=== PATIENT | male | born 1965 | race Caucasian/White ===

== ENCOUNTER 2017-01-01 19:22 | Emergency (ER) | payer OTHER ==
[~2017-01-01] VITALS: Ht 172.7 cm; Wt 95.5 kg
[~2017-01-01 19:22] MED LIST: ASPI325T PO; AZIT250T74 PO; METO50TA PO; NITR.4 SL
[2017-01-01 19:27] VITALS: BP 181/138; PULSE 114; RESP 28; TEMP 98; O2SAT 93
[2017-01-01] MEDS ORDERED: SYMB160A INH (19:41)
[2017-01-01] MEDS ORDERED: ASPI81CH37 CHEW (19:41)
[2017-01-01] MEDS ORDERED: OMEGCAP PO (19:41)
[2017-01-01] MEDS ORDERED: METO-488 PO (19:41)
[2017-01-01] MEDS ORDERED: ALBU6.7H INH (19:41)
[2017-01-01] MEDS ORDERED: OMEP20TA PO (19:41)
[2017-01-01] MEDS ORDERED: ATOR1TAB18 PO (19:41)
[2017-01-01] MEDS ORDERED: AMLO5TAB2 PO (19:41)
[2017-01-01] MEDS ORDERED: NITR0.4S SL (19:41)
[2017-01-01] MEDS ORDERED: RESP: ALBUTEROL 2.5 MG/IPRATROPIUM 0.5 MG NEB (SCH) INH ONE (19:45)
[2017-01-01 20:00] VITALS: BP 135/88; PULSE 106; O2SAT 95
[2017-01-01 20:02] LABS: AUTOMATED NEUTROPHIL # 6.7 TH/MM3 (1.8-7.7); BASOPHIL # 0.1 TH/MM3 (0-0.2); BASOPHIL % 1.2 % (0.0-2.0); EOSINOPHIL # 0.5 TH/MM3 (0-0.4); EOSINOPHIL % 4.3 % (0.0-4.0); HEMATOCRIT 38.3 % (39.0-51.0); HEMO FLAGS DIFF FINAL; LYMPH % 29.2 % (9.0-44.0); LYMPHOCYTE # 3.3 TH/MM3 (1.0-4.8); MEAN CELL VOLUME 79.8 FL (80.0-100.0); MEAN CORPUSCULAR HEMOGLOBIN 27.5 PG (27.0-34.0); MEAN CORPUSCULAR HGB CONC 34.5 % (32.0-36.0); MONO % 5.2 % (0.0-8.0); NEUT % 60.1 % (16.0-70.0); PLATELET COUNT 361 TH/MM3 (150-450); RED CELL DISTRIBUTION WIDTH 14.2 % (11.6-17.2); WHITE BLOOD COUNT 11.2 TH/MM3 (4.0-11.0)
[2017-01-01 20:16] LABS: BLOOD, URINE SMALL (NEG); GLUCOSE,URINE NEG (NEG); KETONE, URINE NEG (NEG); NITRITE,URINE NEG (NEG)
[2017-01-01 20:17] LABS: APTT (PATIENT) 25.8 SEC (24.3-30.1); INTERNATIONAL NORMALIZED RATIO 0.9 RATIO; PROTHROMBIN TIME - PATIENT 9.5 SEC (9.8-11.6)
[2017-01-01 20:20] LABS: URINE COLOR YELLOW (YELLW/STRAW)
[2017-01-01 20:21] LABS: COMMENT (UR) CULT NOT INDICATED; CULTURE IF INDICATED CULT NOT INDICATED
--- NOTE | 2017-01-01 20:21 | PD ---
HPI Chief Complaint: Respiratory Distress Time Seen by Provider: 19:35 Travel History International Travel<30 days: No Contact w/Intl Traveler<30days: No Traveled to known affect area: No History of Present Illness HPI 51-year-old male complains of shortness of breath. Patient states that he has shortness of breath for the past 9 months. Patient has been seen by [facility]. Patient states that he had chest x-ray done a month ago without known the results. Patient has been using inhaler without much relief of the shortest of breath. Patient was a heavy smoker. Patient states that his eye smoking in July 2016. Patient states that he has intermittent wheezing coughing shortest breath for the past 9 months. Patient states the symptoms is worse recently. Patient denies history hypertension, diabetes. Patient has history of dyslipidemia. Patient denies any fever chills. Patient states that a copy persistent dry cough. Patient was put on home O2 by physician at the [facility] clinic. PFSH Past Medical History Asthma: No Blood Disorders: No Anxiety: No Depression: No Heart Rhythm Problems: No Cancer: No Cardiac Catheterization: Yes Cardiovascular Problems: Yes High Cholesterol: Yes Chemotherapy: No Chest Pain: Yes Congestive Heart Failure: No COPD: No Coronary Artery Disease: Yes Diabetes: No Endocrine: No Genitourinary: Yes Hypertension: Yes Immune Disorder: No Neurologic: No Psychiatric: No Reproductive: No Respiratory: No Radiation Therapy: No Sleep Apnea: No Thyroid Disease: No Tetanus Vaccination: < 5 Years Influenza Vaccination: No Past Surgical History Coronary Artery Bypass Graft: Yes (2010: 2 VESSEL) Social History Alcohol Use: No Tobacco Use: No (QUIT JUL 2016) Substance Use: No Allergies-Medications (Allergen,Severity, Reaction): Coded Allergies: Ibuprofen (Verified Allergy, Unknown, UNKNOWN, 01/01/17) Reported Meds & Prescriptions Reported Meds & Active Scripts Active Reported Omeprazole 20 Mg Tab 20 Mg PO DAILY Nitrostat SL (Nitroglycerin) 0.4 Mg Subl 0.4 Mg SL DIRECTED PRN 1 tablet under the tongue as needed for chest pain. Repeat every 5 minutes for a total of 3 DOSES or call 911 if NO relief. Metoprolol Succinate/HCTZ 50-12.5 ER 1 Tab Tab 1 Tab PO DAILY [place]-3 Fish Oil/Vitamin (Fish Oil-Cholecalciferol) 1,000-1,000 Mg Cap 1 Cap PO DAILY Atorvastatin (Atorvastatin Calcium) 80 Mg Tab 80 Mg PO HS Aspirin Low Dose (Aspirin) 81 Mg Chew 81 Mg CHEW DAILY Amlodipine (Amlodipine Besylate) 5 Mg Tab 5 Mg PO DAILY Proventil Hfa 6.7 GM Inh (Albuterol Sulfate) 90 Mcg/Act Aer 2 Puff INH Q6H PRN Symbicort Inh (Budesonide/Formoterol Fumarate) 160-4.5 Mcg/Act Aero 2 Puff INH Q12HR Review of Systems General / Constitutional: No: Fever Eyes: No: Visual changes HENT: No: Headaches Cardiovascular: No: Chest Pain or Discomfort Respiratory: Positive: Cough, Shortness of Breath, Wheezing Gastrointestinal: No: Abdominal Pain Genitourinary: No: Dysuria Musculoskeletal: No: Pain Skin: No Rash Neurologic: No: Weakness Psychiatric: No: Depression Endocrine: No: Polydipsia Hematologic/Lymphatic: No: Easy Bruising Physical Exam Narrative GENERAL: Well-nourished, well-developed patient. SKIN: Focused skin assessment warm/dry. HEAD: Normocephalic. EYES: No scleral icterus. No injection or drainage. NECK: Supple, trachea midline. No JVD or lymphadenopathy. CARDIOVASCULAR: Regular rate and rhythm without murmurs, gallops, or rubs. RESPIRATORY: Breath sounds equal bilaterally. No accessory muscle use. GASTROINTESTINAL: Abdomen soft, non-tender, nondistended. MUSCULOSKELETAL: No cyanosis, or edema. BACK: Nontender without obvious deformity. No CVA tenderness. Neurologic exam normal. Data Data Last Documented VS Vital Signs Date Time Temp Pulse Resp B/P Pulse Ox O2 Delivery O2 Flow Rate FiO2 01/01/17 20:55 104 18 124/73 95 Room Air 01/01/17 19:27 98.0 Orders Electrocardiogram (01/01/17 19:40) Complete Blood Count With Diff (01/01/17 19:40) Comprehensive Metabolic Panel (01/01/17 19:40) Creatine Kinase (Cpk) (01/01/17 19:40) Troponin I (01/01/17 19:40) B-Type Natriuretic Peptide (01/01/17 19:40) Prothrombin Time / Inr (Pt) (01/01/17 19:40) Act Partial Throm Time (Ptt) (01/01/17 19:40) Urinalysis - C+S If Indicated (01/01/17 19:40) D-Dimer (01/01/17 19:40) Chest, Single Ap (01/01/17 19:40) Iv Access Insert/Monitor (01/01/17 19:40) Ecg Monitoring (01/01/17 19:40) Oximetry (01/01/17 19:40) Ct Pulmonary Angiogram (01/01/17 19:40) Albuterol-Ipratropium Neb (Duoneb Neb) (01/01/17 19:45) Labs Laboratory Tests Test 01/01/17 01/01/17 19:50 20:05 White Blood Count 11.2 TH/MM3 Red Blood Count 4.80 MIL/MM3 Hemoglobin 13.2 GM/DL Hematocrit 38.3 % Mean Corpuscular Volume 79.8 FL Mean Corpuscular Hemoglobin 27.5 PG Mean Corpuscular Hemoglobin 34.5 % Concent Red Cell Distribution Width 14.2 % Platelet Count 361 TH/MM3 Mean Platelet Volume 7.4 FL Neutrophils (%) (Auto) 60.1 % Lymphocytes (%) (Auto) 29.2 % Monocytes (%) (Auto) 5.2 % Eosinophils (%) (Auto) 4.3 % Basophils (%) (Auto) 1.2 % Neutrophils # (Auto) 6.7 TH/MM3 Lymphocytes # (Auto) 3.3 TH/MM3 Monocytes # (Auto) 0.6 TH/MM3 Eosinophils # (Auto) 0.5 TH/MM3 Basophils # (Auto) 0.1 TH/MM3 CBC Comment DIFF FINAL Differential Comment Prothrombin Time 9.5 SEC Prothromb Time International 0.9 RATIO Ratio Activated Partial 25.8 SEC Thromboplast Time D-Dimer Quantitative (PE/DVT) 0.27 MG/L FEU Sodium Level 145 MEQ/L Potassium Level 3.7 MEQ/L Chloride Level 110 MEQ/L Carbon Dioxide Level 21.4 MEQ/L Anion Gap 14 MEQ/L Blood Urea Nitrogen 14 MG/DL Creatinine 0.93 MG/DL Estimat Glomerular Filtration 85 ML/MIN Rate Random Glucose 117 MG/DL Calcium Level 8.2 MG/DL Total Bilirubin 0.2 MG/DL Aspartate Amino Transf 30 U/L (AST/SGOT) Alanine Aminotransferase 47 U/L (ALT/SGPT) Alkaline Phosphatase 136 U/L Total Creatine Kinase 231 U/L Troponin I LESS THAN 0.02 NG/ML B-Type Natriuretic Peptide 38 PG/ML Total Protein 7.5 GM/DL Albumin 3.3 GM/DL Urine Color YELLOW Urine Turbidity CLEAR Urine pH 5.0 Urine Specific [place] 1.008 Urine Protein TRACE mg/dL Urine Glucose (UA) NEG mg/dL Urine Ketones NEG mg/dL Urine Occult Blood SMALL Urine Nitrite NEG Urine Bilirubin NEG Urine Leukocyte Esterase NEG Microscopic Urinalysis Comment CULT NOT INDICATED MDM Medical Decision Making Medical Screen Exam Complete: Yes Emergency Medical Condition: Yes Interpretation(s) Last Impressions Chest X-Ray 01/01/171939 Signed Impressions: Service Date/Time: December 19:50 - CONCLUSION: No acute cardiopulmonary disease. Oscar Baltazar MD 2046 PM. CBC WBC 11.2. Hemoglobin 13.2 hematocrit 30.3. MCV 79.8. Normal differential. CMP within normal limit. Cardiac enzymes are normal. BNP normal. Alkaline phosphatase 136. D-dimer normal. UA is negative. 21:[address] pulmonary angiogram shows no acute pathology. Differential Diagnosis Differential diagnosis including reactive airway disease, bronchitis, pneumonia , PE, pneumothorax. Narrative Course 51-year-old male with shortness of breath. Patient was a heavy smoker and quit smoking recently. Patient is on home O2. Patient still complains of shortness of breath despite home O2. CT pulmonary angiogram negative today. Blood tests within normal limit. Diagnosis Primary Impression: Dyspnea Qualified Code: R06.00 - Dyspnea, unspecified type Admitting Information Admitting Physician Requests: Observation Patient Instructions: General Instructions Additional Instructions: Follow-up with personal physician and superintendent of generation. Return if worse. Med/Other Pt SpecificInfo: No Change to Meds Disposition: 01 DISCHARGE HOME Condition: Stable Miguelangel Burton MD Jan 01, 2017 20:20
[2017-01-01 20:23] LABS: CHLORIDE 110 MEQ/L (98-107); POTASSIUM 3.7 MEQ/L (3.5-5.1); SODIUM (NA) 145 MEQ/L (136-145)
--- NOTE | 2017-01-01 20:24 | RADHPO ---
EXAM DATE/TIME: 01/01/2017 19:50 [facility] COMPARISON: CHEST PA & LAT, January 09, 2015, 13:04. INDICATIONS : Shortness of breath. MEDICAL HISTORY : Hypertension. Myocardial infarction. Coronary artery disease. SURGICAL HISTORY : CABG. ENCOUNTER: Initial ACUITY: 1 day PAIN SCORE: 0/10 LOCATION: Bilateral chest FINDINGS: The lungs are clear without infiltrate, nodule, or mass. There is no appreciable pleural effusion fo r technique. Heart and mediastinum are unremarkable. There is evidence for prior median sternotomy. CONCLUSION: No acute cardiopulmonary disease. Oscar Baltazar MD on January 01, 2017 at 20:21 Board Certified Radiologist. This report was verified electronically.
[2017-01-01 20:26] LABS: ANION GAP 14 MEQ/L (5-15); BICARBONATE 21.4 MEQ/L (21.0-32.0)
[2017-01-01 20:27] LABS: BLOOD UREA NITROGEN 14 MG/DL (7-18)
[2017-01-01 20:30] LABS: ALT (GPT) 47 U/L (12-78); AST (GOT) 30 U/L (15-37); GLOMERULAR FILTRATION RATE 85 ML/MIN (>89)
[2017-01-01 20:31] LABS: TOTAL BILIRUBIN ADULT 0.2 MG/DL (0.2-1.0)
[2017-01-01 20:32] LABS: ALKALINE PHOSPHATASE 136 U/L (45-117); CREATINE KINASE 231 U/L (39-308)
[2017-01-01 20:55] VITALS: BP 124/73; PULSE 104; RESP 18; O2SAT 95
--- NOTE | 2017-01-01 21:20 | RADHPO ---
EXAM DATE/TIME: 01/01/2017 20:59 [facility] COMPARISON: No previous studies available for comparison. INDICATIONS : Shortness of breath. IV CONTRAST: 80 cc Omnipaque 350 (iohexol) IV RADIATION DOSE: 19.73 CTDIvol (mGy) MEDICAL HISTORY : Hypertension. Myocardial infarction. Coronary artery disease. SURGICAL HISTORY : CABG ENCOUNTER: Initial ACUITY: 1 day PAIN SCALE: 0/10 LOCATION: Bilateral chest TECHNIQUE: Volumetric scanning of the chest was performed using a pulmonary embolism protocol MIP images were re constructed. Using automated exposure control and adjustment of the mA and/or kV according to patien t size, radiation dose was kept as low as reasonably achievable to obtain optimal diagnostic quality images. FINDINGS: The lungs are clear without infiltrate, nodule, or mass. There is no pleural effusion. No appreciab le pathological adenopathy is seen within the mediastinum. There is no evidence for PE for technique. CONCLUSION: Unremarkable study. Oscar Baltazar MD on January 01, 2017 at 21:16 Board Certified Radiologist. This report was verified electronically.
[2017-01-01] MEDS ORDERED: IOHEXOL 350 MG/ML 10 ML VIAL (for RAD DIAG) IV ONE (21:49)
--- NOTE | 2017-01-02 06:03 | EKG ---
Date Performed: 01/01/2017 Time Performed: 19:26:32 PTAGE: 51 years EKG: Sinus tachycardia. Normal ECG except for rate COMPARED TO PRIOR ELECTROCARDIOGRAM, Rate has increased. PREVIOUS TRACING : 01/09/2015 18.44 DOCTOR: Ron Kelley Interpretating Date/Time 01/02/2017 06:01:16
== END 2017-01-01 21:44 | disposition home or self-care (01) ==
LOC: PHED 19:22
DX: R06.00 Dyspnea, unspecified (principal); R06.2 Wheezing; R05 Cough; R00.0 Tachycardia, unspecified; I10 Essential (primary) hypertension; E78.5 Hyperlipidemia, unspecified; Z99.81 Dependence on supplemental oxygen; Z86.79 Personal history of other diseases of the circulatory system; Z87.448 Personal history of other diseases of urinary system; Z87.891 Personal history of nicotine dependence
CPT/HCPCS: 71010; 71275; 80053; 81001; 82550; 83880; 84484; 85025; 85379; 85610; 85730; 93005; 94664; 99285; Q9967

== ENCOUNTER 2017-01-15 11:50 | Emergency (ER) | payer OTHER ==
[~2017-01-15] VITALS: Ht 172.7 cm; Wt 95.5 kg
[~2017-01-15 11:50] MED LIST changes: +ALBU6.7H INH; +AMLO5TAB2 PO; -ASPI325T PO; +ASPI81CH37 CHEW; +ATOR1TAB18 PO; -AZIT250T74 PO; +METO-488 PO; -METO50TA PO; -NITR.4 SL; +NITR0.4S SL; +OMEGCAP PO; +OMEP20TA PO; +SYMB160A INH
[2017-01-15 11:52] VITALS: BP 174/110; PULSE 88; RESP 24; TEMP 98; O2SAT 97
--- NOTE | 2017-01-15 11:58 | PD ---
Physical Exam Date Seen by Provider: January 15, 2017 Time Seen by Provider: 11:56 Narrative Pt is a 51 year old male presenting to the ED with c/o SOB. Pt states he has been SOB since July. He states his PCP sent him here. Pt is followed [facility]. PT has completed abx, steroids and albuterol nebs with no improvement of symptoms. VSS, awaiting bed placement. Quit smoking in July. Diagnosed with COPD 2 weeks ago. Data Data Last Documented VS Vital Signs Date Time Temp Pulse Resp B/P Pulse Ox O2 Delivery O2 Flow Rate FiO2 01/15/17 11:52 98.0 88 24 174/110 97 Room Air [facility] Supervised Visit with CLIFF: Marcia Lees January 15, 2017 11:58
[2017-01-15 12:40] LABS: AUTOMATED NEUTROPHIL # 9.5 TH/MM3 (1.8-7.7); BASOPHIL # 0.1 TH/MM3 (0-0.2); BASOPHIL % 0.7 % (0.0-2.0); EOSINOPHIL # 0.4 TH/MM3 (0-0.4); HEMATOCRIT 38.5 % (39.0-51.0); HEMO FLAGS DIFF FINAL; LYMPH % 19.1 % (9.0-44.0); LYMPHOCYTE # 2.6 TH/MM3 (1.0-4.8); MEAN CELL VOLUME 79.3 FL (80.0-100.0); MEAN CORPUSCULAR HEMOGLOBIN 26.3 PG (27.0-34.0); MEAN CORPUSCULAR HGB CONC 33.1 % (32.0-36.0); MONO % 7.2 % (0.0-8.0); PLATELET COUNT 262 TH/MM3 (150-450); RED BLOOD COUNT 4.85 MIL/MM3 (4.50-5.90); RED CELL DISTRIBUTION WIDTH 15.4 % (11.6-17.2); WHITE BLOOD COUNT 13.5 TH/MM3 (4.0-11.0)
--- NOTE | 2017-01-15 12:57 | RADRPT ---
EXAM DATE/TIME: 01/15/2017 12:36 [facility] COMPARISON: CHEST PA & LAT, January 09, 2015, 13:04. INDICATIONS : Short of breath for several months. MEDICAL HISTORY : Hypertension. Myocardial infarction. Coronary artery disease. SURGICAL HISTORY : CABG. ENCOUNTER: Initial ACUITY: 4 - 6 months PAIN SCORE: 5/10 LOCATION: Bilateral chest FINDINGS: PA and lateral views of the chest demonstrate the lungs to be symmetrically aerated without evidence of mass, infiltrate or effusion. Status post CABG. The cardiomediastinal contours are unremarkable. Osseous structures are intact. CONCLUSION: No acute disease. Toni Marshall MD on January 15, 2017 at 12:55 Board Certified Radiologist. This report was verified electronically.
[2017-01-15 13:00] LABS: BICARBONATE 23.3 MEQ/L (21.0-32.0); POTASSIUM 3.6 MEQ/L (3.5-5.1)
[2017-01-15 13:15] VITALS: BP 154/90; PULSE 87; RESP 18; O2SAT 97
[2017-01-15] MEDS ORDERED: cefTRIAXone INJ 1,000 MG in SODIUM CHLORIDE 0.9% INJ 100 ML IV ONE (13:30)
[2017-01-15] MEDS ORDERED: methylPREDNISolone SOD SUCC 125 MG/2 ML VIAL IVP ONE (13:30)
[2017-01-15] MEDS: RESP: ALBUTEROL 2.5 MG/IPRATROPIUM 0.5 MG NEB (SCH) INH ×2 (13:33→13:34)
[2017-01-15 13:37] VITALS: O2SAT 98
--- NOTE | 2017-01-15 14:27 | PD ---
HPI Chief Complaint: Respiratory Symptoms Time Seen by Provider: 14:21 Travel History International Travel<30 days: No Contact w/Intl Traveler<30days: No Traveled to known affect area: No History of Present Illness HPI 51-year-old male that presents to the ED for evaluation of shortness of breath. Per patient has had shortness of breath since July. Per patient about 2 weeks ago he was diagnosed with COPD by PCP. Patient states that he's been compliant with his medications and he just finished antibiotics and steroids which did make him feel better but since his been out of the medications he's been feeling worse. He does not use oxygen at home. He denies any chest pain. No abdominal pain. No nausea or vomiting. Allergy to ibuprofen. He states that now he is coughing yellow phlegm. Per patient he has an appointment with a coding manager in a week for a regular checkup. Patient does have a history of cardiac disease. Per patient and shortness of breath gets worse at night as well as when he ambulates. He denies any recent travel. Takes no blood thinners. Patient was seen here about 2 weeks ago for same. Patient has no automotive parts advisor of family does want him to go to a automotive parts advisor. No injuries. No headache. No blurry vision or double vision. PFSH Past Medical History Asthma: No Blood Disorders: No Anxiety: No Depression: No Heart Rhythm Problems: No Cancer: No Cardiac Catheterization: Yes Cardiovascular Problems: Yes High Cholesterol: Yes Chemotherapy: No Chest Pain: Yes Congestive Heart Failure: No COPD: Yes Coronary Artery Disease: Yes Diabetes: No Endocrine: No Genitourinary: Yes Hypertension: Yes Immune Disorder: No Neurologic: No Psychiatric: No Reproductive: No Respiratory: No Radiation Therapy: No Sleep Apnea: No Thyroid Disease: No Influenza Vaccination: No Past Surgical History Coronary Artery Bypass Graft: Yes (2009: 2 VESSEL) Other Surgery: Yes (CABAG 2009 ) Social History Alcohol Use: Yes (occaasional) Tobacco Use: No (QUIT JUL 2016) Substance Use: No Allergies-Medications (Allergen,Severity, Reaction): Coded Allergies: Ibuprofen (Verified Allergy, Unknown, UNKNOWN, 01/15/17) Reported Meds & Prescriptions Reported Meds & Active Scripts Active Reported Omeprazole 20 Mg Tab 20 Mg PO DAILY Nitrostat SL (Nitroglycerin) 0.4 Mg Subl 0.4 Mg SL DIRECTED PRN 1 tablet under the tongue as needed for chest pain. Repeat every 5 minutes for a total of 3 DOSES or call 911 if NO relief. Metoprolol Succinate/HCTZ 50-12.5 ER 1 Tab Tab 1 Tab PO DAILY [place]-3 Fish Oil/Vitamin (Fish Oil-Cholecalciferol) 1,000-1,000 Mg Cap 1 Cap PO DAILY Atorvastatin (Atorvastatin Calcium) 80 Mg Tab 80 Mg PO HS Aspirin Low Dose (Aspirin) 81 Mg Chew 81 Mg CHEW DAILY Amlodipine (Amlodipine Besylate) 5 Mg Tab 5 Mg PO DAILY Proventil Hfa 6.7 GM Inh (Albuterol Sulfate) 90 Mcg/Act Aer 2 Puff INH Q6H PRN Symbicort Inh (Budesonide/Formoterol Fumarate) 160-4.5 Mcg/Act Aero 2 Puff INH Q12HR Review of Systems Except as stated in HPI: all other systems reviewed are Neg Physical Exam Narrative GENERAL: Well-nourished, well-developed patient in no apparent distress. SKIN: Warm and dry. HEAD: Atraumatic. Normocephalic. EYES: Pupils equal and round reactive to light and accommodation. No scleral icterus. No injection or drainage. ENT: No nasal bleeding or discharge. Mucous membranes pink and moist. TMs are clear with no sign of infection or perforation. No mastoid tenderness. Ear canals are intact bilaterally. No lymphadenopathy. Nostril mucosa is red and moist with clear mucus noted. No sinus tenderness to palpation noted. Tonsils are not enlarged or swollen. No ulvua Deviation. Tongue is midline. NECK: Trachea midline. No JVD. No meningeal signs noted CARDIOVASCULAR: Regular rate and rhythm. No murmurs, S3, S4. RESPIRATORY: No accessory muscle use. Minimal expiratory wheezing with expiration noted.. Breath sounds equal bilaterally. GASTROINTESTINAL: Abdomen soft, non-tender, nondistended. Hepatic and splenic margins not palpable. MUSCULOSKELETAL: Extremities without clubbing, cyanosis, or edema. No obvious deformities. Full range of motion of the upper and lower extremities bilaterally. 2+ pulses bilaterally. NEUROLOGICAL: Awake and alert. No obvious cranial nerve deficits. Motor grossly within normal limits. Five out of 5 muscle strength in the arms and legs. Normal speech. PSYCHIATRIC: Appropriate mood and affect; insight and judgment normal. Data Data Last Documented VS Vital Signs Date Time Temp Pulse Resp B/P Pulse Ox O2 Delivery O2 Flow Rate FiO2 5/11/17 13:37 98 21 01/15/17 13:15 87 18 154/90 Room Air 01/15/17 11:52 98.0 Orders Complete Blood Count With Diff (01/15/17 12:19) Basic Metabolic Panel (Bmp) (01/15/17 12:19) Chest, Pa & Lat (01/15/17 12:19) Iv Access Insert/Monitor (01/15/17 12:19) Ecg Monitoring (01/15/17 12:19) Oxygen Administration (01/15/17 12:19) Oximetry (01/15/17 12:19) Methylprednisolone So Succ Inj (Solumedr (01/15/17 13:30) Albuterol-Ipratropium Neb (Duoneb Neb) (01/15/17 13:30) Ceftriaxone Inj (Rocephin Inj) (01/15/17 13:30) Electrocardiogram (01/15/17 13:26) Troponin I (01/15/17 13:26) Labs Laboratory Tests Test 01/15/17 12:30 White Blood Count 13.5 TH/MM3 Red Blood Count 4.85 MIL/MM3 Hemoglobin 12.8 GM/DL Hematocrit 38.5 % Mean Corpuscular Volume 79.3 FL Mean Corpuscular Hemoglobin 26.3 PG Mean Corpuscular Hemoglobin 33.1 % Concent Red Cell Distribution Width 15.4 % Platelet Count 262 TH/MM3 Mean Platelet Volume 7.8 FL Neutrophils (%) (Auto) 70.0 % Lymphocytes (%) (Auto) 19.1 % Monocytes (%) (Auto) 7.2 % Eosinophils (%) (Auto) 3.0 % Basophils (%) (Auto) 0.7 % Neutrophils # (Auto) 9.5 TH/MM3 Lymphocytes # (Auto) 2.6 TH/MM3 Monocytes # (Auto) 1.0 TH/MM3 Eosinophils # (Auto) 0.4 TH/MM3 Basophils # (Auto) 0.1 TH/MM3 CBC Comment DIFF FINAL Differential Comment Sodium Level 140 MEQ/L Potassium Level 3.6 MEQ/L Chloride Level 105 MEQ/L Carbon Dioxide Level 23.3 MEQ/L Anion Gap 12 MEQ/L Blood Urea Nitrogen 16 MG/DL Creatinine 0.97 MG/DL Estimat Glomerular Filtration 81 ML/MIN Rate Random Glucose 125 MG/DL Calcium Level 9.0 MG/DL [facility] Medical Decision Making Medical Screen Exam Complete: Yes Emergency Medical Condition: Yes Medical Record Reviewed: Yes Interpretation(s) CBC & BMP Diagram 01/15/17 12:30 EKG shows sinus rhythm with no sign of acute ischemia or arrhythmia. Read by me and attending. Troponin negative. Chest x-ray negative for acute disease. Differential Diagnosis COPD exacerbation versus cardiac disease versus ACS versus dyspnea Narrative Course 51-year-old male that presents to the ED for evaluation of shortness of breath. Patient was properly examined and was found to have signs and symptoms consistent with appears to be COPD exacerbation. No sign of acute medical distress. Vitals here are within normal limits. An we'll do labwork and imaging. Lab work and imaging were essentially unremarkable here. Patient was given breathing treatments and Solu-Medrol with some improvement. I do recommend close follow-up with outpatient automotive parts advisor. Patient was given the name of for automotive parts advisor. Fortunate patient follows with the [facility] so he will require referral by his PCP to [facility] specific automotive parts advisor. I strongly suggest that he continues not smoking. Patient will be given a prescription for prednisone, Cipro, refill of his albuterol inhaler and nebulizer. Patient was told to continue taking his medications as prescribed by his doctor. Does follow with PCP for possible sleep apnea evaluation. See ED for worsening symptoms. Diagnosis Primary Impression: COPD (chronic obstructive pulmonary disease) with chronic bronchitis Patient Instructions: General Instructions Additional Instructions: Take medications as prescribed. Follow-up with automotive parts advisor in the next couple of weeks. Patient does require follow up with pulmunologist as soon as possible for further treatment of his symptoms and disease. See ED for any worsening symptoms. Avoid extraneous exercises or activities. Med/Other Pt SpecificInfo: Prescription(s) given Disposition: 01 DISCHARGE HOME Condition: Stable Jarred Jarrett January 15, 2017 14:27
[2017-01-15] MEDS ORDERED: ALBU6.7H INH (14:29)
[2017-01-15] MEDS ORDERED: PRED20 PO (14:29)
[2017-01-15] MEDS ORDERED: CIPR-9 PO (14:29)
--- NOTE | 2017-01-15 17:55 | EKG ---
Date Performed: 01/15/2017 Time Performed: 14:07:23 PTAGE: 51 years EKG: Sinus rhythm NORMAL ECG COMPARED TO PRIOR ELECTROCARDIOGRAM, Rate has slowed. PREVIOUS TRACING : 01/01/2017 19.26 DOCTOR: Ron Kelley Interpretating Date/Time 01/15/2017 17:54:10
== END 2017-01-15 15:17 | disposition home or self-care (01) ==
LOC: NEPE 11:50
DX: J44.9 Chronic obstructive pulmonary disease, unspecified (principal); I10 Essential (primary) hypertension; E78.00 Pure hypercholesterolemia, unspecified; I25.10 Atherosclerotic heart disease of native coronary artery without angina pectoris; Z95.1 Presence of aortocoronary bypass graft; Z79.82 Long term (current) use of aspirin; Z79.899 Other long term (current) drug therapy
CPT/HCPCS: 71020; 80048; 84484; 85025; 93005; 94640; 94664; 96374; 96375; 99284; J0696; J2930

== ENCOUNTER 2017-01-30 08:51 | Emergency (ER) | payer OTHER ==
[~2017-01-30] VITALS: Ht 172.7 cm; Wt 100.0 kg
[~2017-01-30 08:51] MED LIST changes: +CIPR-9 PO; +PRED20 PO
[2017-01-30 08:53] VITALS: BP 157/104; PULSE 94; RESP 24; TEMP 98; O2SAT 99
[2017-01-30] MEDS ORDERED: SODIUM CHLOR 0.9% 1000 ML INJ 1,000 ML IV SCH (09:04)
[2017-01-30 09:09] VITALS: BP 156/100; PULSE 98; RESP 18; TEMP 98.2; O2SAT 98
[2017-01-30] MEDS ORDERED: FAMOTIDINE 20 MG/2 ML VIAL IV PUSH ONE (09:15)
[2017-01-30] MEDS ORDERED: methylPREDNISolone SOD SUCC 125 MG/2 ML VIAL IVP ONE (09:15)
[2017-01-30] MEDS ORDERED: diphenhydrAMINE HCL 50 MG/ML VIAL IVP ONE (09:15)
[2017-01-30] MEDS ORDERED: EPINEPHrine HCL (1:1000) 1 MG/ML VIAL IM ONE (09:15)
[2017-01-30] MEDS ORDERED: SODIUM CHLORIDE 0.9% FLUSH 10 ML FLUSH IV FLUSH PRN (09:15)
[2017-01-30 09:31] VITALS: O2SAT 97
[2017-01-30 09:49] LABS: AUTOMATED NEUTROPHIL # 8.9 TH/MM3 (1.8-7.7); BASOPHIL # 0.1 TH/MM3 (0-0.2); EOSINOPHIL # 0.4 TH/MM3 (0-0.4); EOSINOPHIL % 3.3 % (0.0-4.0); HEMATOCRIT 40.6 % (39.0-51.0); HEMO FLAGS DIFF FINAL; LYMPH % 15.5 % (9.0-44.0); LYMPHOCYTE # 1.9 TH/MM3 (1.0-4.8); MEAN CELL VOLUME 79.9 FL (80.0-100.0); MEAN CORPUSCULAR HEMOGLOBIN 25.6 PG (27.0-34.0); MEAN CORPUSCULAR HGB CONC 32.1 % (32.0-36.0); MONO % 9.4 % (0.0-8.0); NEUT % 70.8 % (16.0-70.0); PLATELET COUNT 267 TH/MM3 (150-450); RED BLOOD COUNT 5.09 MIL/MM3 (4.50-5.90); RED CELL DISTRIBUTION WIDTH 16.3 % (11.6-17.2); WHITE BLOOD COUNT 12.6 TH/MM3 (4.0-11.0)
[2017-01-30 09:58] LABS: POTASSIUM 3.6 MEQ/L (3.5-5.1)
--- NOTE | 2017-01-30 10:47 | PD ---
HPI Chief Complaint: Respiratory Distress Time Seen by Provider: 09:04 Travel History International Travel<30 days: No Contact w/Intl Traveler<30days: No Traveled to known affect area: No History of Present Illness HPI The patient's 51 years old. He's had swelling of the tongue since this morning. He notes recently starting ipratropium for COPD, a new diagnosis. He does complain of some wheezing lately causing shortness of breath. He denies dyspnea due to throat obstruction that he can appreciate. No fever. No pain about the neck. he's had no chest pain or rash. No similar prior episode has occurred. PFSH Past Medical History Asthma: No Blood Disorders: No Anxiety: No Depression: No Heart Rhythm Problems: No Cancer: No Cardiac Catheterization: Yes Cardiovascular Problems: Yes (BY PASS. CARDIAC CATH ) High Cholesterol: Yes Chemotherapy: No Chest Pain: Yes Congestive Heart Failure: No COPD: Yes Coronary Artery Disease: Yes Diabetes: No Endocrine: No Genitourinary: Yes Hypertension: Yes Immune Disorder: No Neurologic: No Psychiatric: No Reproductive: No Respiratory: No Radiation Therapy: No Sleep Apnea: No Thyroid Disease: No Past Surgical History Coronary Artery Bypass Graft: Yes (2009: 2 VESSEL) Other Surgery: Yes (CABAG 2009 ) Social History Alcohol Use: Yes (occaasional) Tobacco Use: No (QUIT JUL 2016) Substance Use: No Allergies-Medications (Allergen,Severity, Reaction): Coded Allergies: Ibuprofen (Verified Allergy, Unknown, UNKNOWN, 01/30/17) Reported Meds & Prescriptions Reported Meds & Active Scripts Active Diphenhydramine (Diphenhydramine HCl) 25 Mg Cap 25 Mg PO Q6H PRN 5 Days Prednisone 20 Mg Tab 40 Mg PO DAILY 5 Days Take 40 mg (2 tablets) daily for 5 days Cipro (Ciprofloxacin HCl) 500 Mg Tab 500 Mg PO BID 10 Days Prednisone 20 Mg Tab 20 Mg PO BID Proventil Hfa 6.7 GM Inh (Albuterol Sulfate) 90 Mcg/Act Aer 2 Puff INH Q6H PRN Reported Omeprazole 20 Mg Tab 20 Mg PO DAILY Nitrostat SL (Nitroglycerin) 0.4 Mg Subl 0.4 Mg SL DIRECTED PRN 1 tablet under the tongue as needed for chest pain. Repeat every 5 minutes for a total of 3 DOSES or call 911 if NO relief. Metoprolol Succinate/HCTZ 50-12.5 ER 1 Tab Tab 1 Tab PO DAILY [place]-3 Fish Oil/Vitamin (Fish Oil-Cholecalciferol) 1,000-1,000 Mg Cap 1 Cap PO DAILY Atorvastatin (Atorvastatin Calcium) 80 Mg Tab 80 Mg PO HS Aspirin Low Dose (Aspirin) 81 Mg Chew 81 Mg CHEW DAILY Amlodipine (Amlodipine Besylate) 5 Mg Tab 5 Mg PO DAILY Symbicort Inh (Budesonide/Formoterol Fumarate) 160-4.5 Mcg/Act Aero 2 Puff INH Q12HR Review of Systems Except as stated in HPI: all other systems reviewed are Neg Physical Exam Narrative GENERAL: She 1-year-old male well-nourished well-developed speaking full sentences SKIN: Focused skin assessment warm/dry. HEAD: Atraumatic. Normocephalic. EYES: Pupils equal and round. No scleral icterus. No injection or drainage. ENT: Trace swelling of the tongue and posterior oropharynx. No stridor. NECK: Trachea midline. No JVD. CARDIOVASCULAR: Regular rate and rhythm. No murmur appreciated. RESPIRATORY: No accessory muscle use. Clear to auscultation. Breath sounds equal bilaterally. GASTROINTESTINAL: Abdomen soft, non-tender, nondistended. Hepatic and splenic margins not palpable. MUSCULOSKELETAL: No obvious deformities. No clubbing. No cyanosis. No edema. NEUROLOGICAL: Awake and alert. No obvious cranial nerve deficits. Motor grossly within normal limits. Normal speech. PSYCHIATRIC: Appropriate mood and affect; insight and judgment normal. Data Data Last Documented VS Vital Signs Date Time Temp Pulse Resp B/P Pulse Ox O2 Delivery O2 Flow Rate FiO2 01/30/17 13:11 87 16 137/90 100 01/30/17 11:31 Room Air 01/30/17 09:09 98.2 Vital signs reviewed Orders Basic Metabolic Panel (Bmp) (01/30/17 09:04) Complete Blood Count With Diff (01/30/17 09:04) Ecg Monitoring (01/30/17 09:04) Iv Access Insert/Monitor (01/30/17 09:04) Oximetry (01/30/17 09:04) Oxygen Administration (01/30/17 09:04) Diphenhydramine Inj (Benadryl Inj) (01/30/17 09:15) Methylprednisolone So Succ Inj (Solumedr (01/30/17 09:15) Famotidine Inj (Pepcid Inj) (01/30/17 09:15) Sodium Chlor 0.9% 1000 Ml Inj (Ns 1000 M (01/30/17 09:04) Sodium Chloride 0.9% Flush (Ns Flush) (01/30/17 09:15) Epinephrine (1:1000) Inj (Adrenalin (1:1 (01/30/17 09:15) Ct Soft Tiss Neck W Iv Cont (01/30/17 ) Iohexol 350 Inj (Omnipaque 350 Inj) (01/30/17 10:52) Labs Laboratory Tests Test 01/30/17 09:27 White Blood Count 12.6 TH/MM3 Red Blood Count 5.09 MIL/MM3 Hemoglobin 13.0 GM/DL Hematocrit 40.6 % Mean Corpuscular Volume 79.9 FL Mean Corpuscular Hemoglobin 25.6 PG Mean Corpuscular Hemoglobin 32.1 % Concent Red Cell Distribution Width 16.3 % Platelet Count 267 TH/MM3 Mean Platelet Volume 7.8 FL Neutrophils (%) (Auto) 70.8 % Lymphocytes (%) (Auto) 15.5 % Monocytes (%) (Auto) 9.4 % Eosinophils (%) (Auto) 3.3 % Basophils (%) (Auto) 1.0 % Neutrophils # (Auto) 8.9 TH/MM3 Lymphocytes # (Auto) 1.9 TH/MM3 Monocytes # (Auto) 1.2 TH/MM3 Eosinophils # (Auto) 0.4 TH/MM3 Basophils # (Auto) 0.1 TH/MM3 CBC Comment DIFF FINAL Differential Comment Sodium Level 138 MEQ/L Potassium Level 3.6 MEQ/L Chloride Level 102 MEQ/L Carbon Dioxide Level 26.0 MEQ/L Anion Gap 10 MEQ/L Blood Urea Nitrogen 11 MG/DL Creatinine 0.88 MG/DL Estimat Glomerular Filtration 91 ML/MIN Rate Random Glucose 124 MG/DL Calcium Level 8.6 MG/DL MDM Medical Decision Making Medical Screen Exam Complete: Yes Emergency Medical Condition: Yes Medical Record Reviewed: Yes Differential Diagnosis Angioedema, anaphylaxis, cellulitis, Joshua's angina Narrative Course CBC & BMP Diagram 01/30/17 09:27 Last [address] 01/30/17 0000 Signed Impressions: Service Date/Time: Monday, January 30, 2017 10:42 - CONCLUSION: 1. Unremarkable CT scan of the neck. No masses are identified. Conner Zendejas MD Patient received Solu-Medrol Benadryl and Pepcid immediately upon arrival. Reassessment at approximately 9:45 AM patient reports mild improvement. Reassessment at approx 3.5 hours following admission and patient has improved. The patient is resting comfortably and feels better, is alert and in no distress. The patients results and examination findings were discussed. The repeat examination is unremarkable and benign. The history, exam, diagnostic testing, and current condition do not suggest any significant pathology to warrant further testing, continued ED treatment, admission, or surgical evaluation at this point. The vital signs have been stable. The patient does not have uncontrollable pain, intractable vomiting, or other significant symptoms. The patient's condition is stable and appropriate for discharge. The patient will pursue further outpatient evaluation with a primary care physician or other designated or consulting physician as indicated in the discharge instructions. The patient expressed understanding and was agreeable with this plan. Diagnosis Primary Impression: Angio-edema Qualified Code: T78.3XXA - Angio-edema, initial encounter Referrals: [facility] 1 day Additional Instructions: You have a choice when it comes to health care, and we are glad that you chose [facility]. Hopefully, we have met your expectations on today's visit. You are welcome to return to [facility] at any time, as we are committed to meeting the health care needs of our community. Med/Other Pt SpecificInfo: Prescription(s) given Scripts Diphenhydramine 25 Mg Cap25 Mg PO Q6H PRN (ALLERGIES) 5 Days Ref 0 Prov:Tom Mclean MD 01/30/17 Prednisone 20 Mg Tab40 Mg PO DAILY 5 Days Ref 0 Take 40 mg (2 tablets) daily for 5 days Prov:Tom Mclean MD 01/30/17 Disposition: 01 DISCHARGE HOME Condition: Stable Tom Mclean MD January 30, 2017 10:47
[2017-01-30] MEDS ORDERED: IOHEXOL 350 MG/ML 10 ML VIAL (for RAD DIAG) IV ONE (10:52)
[2017-01-30 11:31] VITALS: BP 126/88; PULSE 92; RESP 16; O2SAT 97
--- NOTE | 2017-01-30 12:20 | RADRPT ---
EXAM DATE/TIME: 01/30/2017 10:42 [facility] COMPARISON: No previous studies available for comparison. INDICATIONS : Tongue swelling, history of smoking. IV CONTRAST: 60 cc Omnipaque 350 (iohexol) IV RADIATION DOSE: 20.82 CTDIvol (mGy) MEDICAL HISTORY : Cardiovascular disease. Hypertension. Chronic obstructive pulmonary disease. SURGICAL HISTORY : None. ENCOUNTER: Initial ACUITY: 1 day PAIN SCALE: 4/10 LOCATION: Bilateral tongue TECHNIQUE: Volumetric scanning of the neck was performed. Using automated exposure control and adjustment of th e mA and/or kV according to patient size, radiation dose was kept as low as reasonably achievable to obtain optimal diagnostic quality images. FINDINGS: NASOPHARYNX: The nasopharyngeal airway has a normal configuration. No mucosal thickening or mass is seen. OROPHARYNX: The intrinsic muscles of the tongue are symmetric. The tonsillar pillars are intact. The prevertebr al soft tissues are not thickened. LARYNX: The supraglottic, glottic, and infraglottic structures are intact. PARAPHARYNGEAL: The parapharyngeal space is intact. SALIVARY GLANDS: The parotid and submandibular glands are intact. LYMPH NODES: No enlarged or necrotic-appearing nodes. THYROID: Homogeneous enhancement without evidence of nodule. BONES: Unremarkable. CONCLUSION: 1. Unremarkable CT scan of the neck. No masses are identified. Conner Zendejas MD on January 30, 2017 at 12:12 Board Certified Radiologist. This report was verified electronically.
[2017-01-30] MEDS ORDERED: PRED20 PO (12:52)
[2017-01-30] MEDS ORDERED: DIPH25CA PO (12:52)
[2017-01-30 13:11] VITALS: BP 137/90
== END 2017-01-30 13:13 | disposition home or self-care (01) ==
LOC: NEPE 08:51
DX: T78.3XXA Angioneurotic edema, initial encounter (principal); R06.2 Wheezing; R06.02 Shortness of breath; I10 Essential (primary) hypertension; E78.00 Pure hypercholesterolemia, unspecified; Z86.79 Personal history of other diseases of the circulatory system; Z87.09 Personal history of other diseases of the respiratory system; Z87.448 Personal history of other diseases of urinary system; Z87.891 Personal history of nicotine dependence
CPT/HCPCS: 70491; 80048; 85025; 96374; 96375; 99285; J1200; J2930; J7030; Q9967